=== PATIENT | female | born 1990 | race Caucasian/White ===

== ENCOUNTER 2021-06-14 10:23 | Emergency (ER) | payer OTHER, SELFPAY ==
--- NOTE | 2021-06-14 10:30 | ED.URI ---
HPI - URI/Sore Throat General Chief Complaint: Upper Respiratory Infection Stated Complaint: cough/congestion Time Seen by Provider: 06/14/21 10:41 Source: patient and RN notes reviewed Mode of arrival: ambulatory Limitations: no limitations History of Present Illness HPI Narrative: 31-year-old female presents with concern for continued cough. Reports this is day 9 of symptoms. She has had several negative COVID tests. Reports she was seen by telehealth 4 days ago and was given an antibiotic steroid and an inhaler. She reports symptoms have not improved since she has been taking this medication she is on approximately day 3 of treatment. She reports her cough is persistent and she is unable to return to work with her current cough. MD elicited complaint: cough Related Data Home Medications Medication Instructions Recorded Confirmed albuterol sulfate 2 puff INHALATION PRN PRN 06/14/21 06/14/21 amoxicillin-pot clavulanate 1 tablet PO DAILY 06/14/21 06/14/21 benzonatate 200 mg PO DAILY 06/14/21 06/14/21 bupropion HCl 200 mg PO DAILY 06/14/21 06/14/21 clonazepam 0.5 mg PO DAILY 06/14/21 06/14/21 dextroamphetamine-amphetamine 10 mg PO DAILY 06/14/21 06/14/21 prednisone 10 mg PO DAILY 06/14/21 06/14/21 Allergies Allergy/AdvReac Type Severity Reaction Status Date / Time Sulfa (Sulfonamide Allergy Mild Unknown Verified 06/14/21 10:43 Antibiotics) Review of Systems Review of Systems: CONSTITUTIONAL: Reports malaise ENT: Reports rhinorrhea, congestion. Sinus pain, otalgia and sore throat. RESPIRATORY: Reports cough. Denies dyspnea. All systems reviewed & are unremarkable except as noted in HPI and below PMFSH Comments At time of signature, agree with nursing past medical, surgical, social and family history. There is no relevant family history pertinent to the presenting complaint Exam Narrative: GENERAL: Well-appearing, well-nourished, and in no acute distress. HEAD: Normocephalic EYES: PERRLA, conjunctivae clear ENT: Nares clear. Mucous membranes moist. NECK: Supple. CHEST: Left lower lobe rhonchi, otherwise clear to auscultation, breath sounds equal. Aeration good. No wheezing, rales, or stridor. No respiratory distress, speaks in full sentences. HEART: Regular rate and rhythm. No murmur heard. SKIN: Warm, dry, no rash. NEURO: Alert and oriented x3. PSYCH: Normal mood and affect Course Course Emergency Course: Explained to patient that x-ray is down hospitalwide, patient was hoping for an x-ray. Discussed that she is currently on appropriate treatment for her symptoms and should continue to take the medications and follow-up with her primary care provider at the end of her treatment. Patient is aware of, understands and agrees to treatment plan. Anticipatory guidance given. Patient agrees to follow-up as directed and is aware of reasons to seek care at the emergency department. Portions of this record may have been created with voice recognition software Level of Care: Express Care Visit Vital Signs Vital signs: Vital Signs Temperature 98.9 F 06/14/21 10:33 Pulse Rate 116 H 06/14/21 10:33 Respiratory Rate 16 06/14/21 10:33 Blood Pressure 156/103 H 06/14/21 10:33 Pulse Oximetry 100 06/14/21 10:33 Temperature 98.9 F 06/14/21 10:33 Pulse Rate 116 H 06/14/21 10:33 Respiratory Rate 16 06/14/21 10:33 Blood Pressure 156/103 H 06/14/21 10:33 Pulse Oximetry 100 06/14/21 10:33 Reviewed. Patient has been instructed to follow up with her primary care provider within the next week regarding her elevated blood pressure today. MDM - URI/Sore Throat MDM Narrative Medical decision making narrative: Differential diagnosis considered: Jackman virus, strep pharyngitis, allergic rhinitis, upper respiratory tract infection, sinusitis, rhinosinusitis, nasopharyngitis. viral pharyngitis, otitis media, otitis externa, pneumonia, bronchitis, viral cough syndrome, viral syndrome, and influenza. E
[2021-06-14 10:33] VITALS: BP 156/103; PULSE 116; RESP 16; TEMP 37.2; O2SAT 100
== END 2021-06-14 10:55 | disposition home or self-care (01) ==
PROVIDERS: Emergency Provider Nurse Practitioner
DX: R09.89 Other specified symptoms and signs involving the circulatory and respiratory systems (principal); F90.9 Attention-deficit hyperactivity disorder, unspecified type
CPT/HCPCS: 99213; G0463

== ENCOUNTER 2022-06-25 19:39 | Emergency (ER) | payer OTHER, SELFPAY ==
--- NOTE | ~2022-06-25 | US_ITS ---
EXAMINATION: US OB <= 14 weeks fetus DATE: 06/25/2022 21:49 INDICATION: Vaginal bleeding. TECHNIQUE: Real-time transabdominal obstetric ultrasound. FINDINGS: No prior studies for comparison. The uterus measures 13.1 x 5.3 x 6.5 cm.. Gestational sac and pole are identified in the lower uterine segment near the cervix. [place]-rump length measures 5.09 cm corresponding to 11 weeks 6 day g estation. heart rate is 147 BPM. The ovaries are unremarkable. No free fluid in the pelvis. IMPRESSION: 1. Gestational sac and pole contained in the lower uterine segment near the endocervical juncti on. heart rate 147 BPM. [place]-rump length corresponds to a 11 week 6 day gestation. Recommend f ollow-up ultrasound as clinically warranted. Reviewed, dictated and finalized at location A. [employer] IMPRESSION: 1. Gestational sac and pole contained in the lower uterine segment near t he endocervical junction. heart rate 147 BPM. [place]-rump length correspon ds to a 11 week 6 day gestation. Recommend follow-up ultrasound as clinically w arranted.
[2022-06-25 19:41] VITALS: BP 166/102; PULSE 118; RESP 19; TEMP 36.4; O2SAT 100
[2022-06-25 19:56] LABS: Basophils Absolute Auto 0.1 K/mm3 (0.0-0.1); Basophils Percent Auto 0.5 % (0.2-1.2); Eosinophils Absolute Auto 0.3 K/mm3 (0-0.3); Eosinophils Percent Auto 2.6 % (0-4.4); Hematocrit 36.8 % (37.0-47.0); Hemoglobin 12.2 g/dL (12.0-15.0); Immature Granulocyte Absolute 0.02 K/mm3 (0.00-0.031); Immature Granulocyte Percent A 0.2 % (0-0.5); Lymphocytes Absolute Auto 3.31 K/mm3 (0.9-3.2); Lymphocytes Percent Auto 33.1 % (18.3-44.2); Mean Corpuscular HGB Conc 33.2 g/dl (32-36); Mean Corpuscular Hemoglobin 31.2 pg (26-34); Mean Corpuscular Volume 94.1 fl (80-100); Monocytes Absolute Auto 0.7 K/mm3 (0.1-0.6); Monocytes Percent Auto 7.4 % (2.6-8.5); Neutrophils Absolute Auto 5.6 K/mm3 (1.3-6.7); Neutrophils Percent Auto 56.2 % (45.5-73.1); Platelet Count Result 341 k/mm3 (150-375); Red Blood Count 3.91 M/mm3 (4.2-5.4); Red Cell Distribution Width 12.9 % (11.5-14.5)
[2022-06-25 22:29] VITALS: O2SAT 100
[2022-06-25 22:30] VITALS: O2SAT 100
[2022-06-25 22:31] VITALS: BP 145/88; O2SAT 100
--- NOTE | 2022-06-25 23:01 | ED.FEMALEGU ---
HPI - Female Genitourinary General Chief complaint: Vaginal Bleeding Stated complaint: vaginal bleeding Time Seen by Provider: 06/25/22 20:50 Source: patient Mode of arrival: ambulatory Limitations: no limitations History of Present Illness HPI Narrative: 32-year-old 1 para 0 about 11 weeks of gestation here with complaints of vaginal bleeding for past 2 days. 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 She states she passed some clots. She denied being lightheaded or dizzy. Has occasional abdominal cramping. MD elicited complaint: vaginal bleeding Pertinent past history: other (Medical ) Onset (ago): day(s) (2) Severity: mild Quality of pain: cramping Vaginal bleeding: moderate Exacerbating factors: none Related Data Home Medications Medication Instructions Recorded Confirmed albuterol sulfate 90 mcg/actuation 2 puff inhalation PRN PRN 06/14/21 06/14/21 aerosol inhaler difficulty breathing amoxicillin 875 mg-potassium 1 tablet PO DAILY 06/14/21 06/14/21 clavulanate 125 mg tablet benzonatate 200 mg capsule 200 mg PO DAILY 06/14/21 06/14/21 bupropion HCl 200 mg tablet,12 hr 200 mg PO DAILY 06/14/21 06/14/21 sustained-release clonazepam 0.5 mg tablet 0.5 mg PO DAILY 06/14/21 06/14/21 dextroamphetamine-amphetamine 10 10 mg PO DAILY 06/14/21 06/14/21 mg tablet prednisone 10 mg tablet 10 mg PO DAILY 06/14/21 06/14/21 Allergies Allergy/AdvReac Type Severity Reaction Status Date / Time Sulfa (Sulfonamide Allergy Mild Unknown Verified 06/14/21 10:43 Antibiotics) Review of Systems Review of Systems: All systems reviewed & are unremarkable except as noted in HPI and below Eyes: Eyes: Reports no additional eye complaints ENT: Reports system reviewed and no additional complaints, except as documented Cardiovascular: Cardiovascular: Reports no additional cardiovascular complaints Respiratory: Respiratory: Reports no additional respiratory complaints Gastrointestinal: Gastrointestinal: Reports as per HPI Genitourinary: Genitourinary: Reports as per HPI Musculoskeletal: Musculoskeletal: Reports no additional musculoskeletal complaints Integumentary/Breasts: Skin/Breast: Reports system reviewed and no additional complaints, except as docu Exam Narrative: GENERAL: Well-appearing, well-nourished, and in no acute distress. HEAD: Normocephalic, atraumatic. EYES: PERRLA and EOMI. NECK: Supple. CHEST: Clear to auscultation. No respiratory distress. HEART: Regular rate and rhythm. No murmur heard. Normal peripheral pulses. ABDOMEN: Soft, nontender, nondistended, normal active bowel sounds. EXTREMITIES: Normal range of motion. No edema. SKIN: Warm, dry, no rash. NEURO: No focal deficits. Alert and oriented x3. PSYCH: Normal mood and affect. Course Course Emergency Course: Patient is hemodynamically, hemoglobin is 12.2 her ultrasound shows 11 weeks gestation with positive heart tones. Advised bleeding precautions, contact [facility] tomorrow. Vital Signs Vital signs: Vital Signs Temperature 36.4 C L 06/25/22 19:41 Pulse Rate 118 H 06/25/22 19:41 Respiratory Rate 19 06/25/22 19:41 Blood Pressure 166/102 H 06/25/22 19:41 Pulse Oximetry 100 06/25/22 19:41 Temperature 36.4 C L 06/25/22 19:41 Pulse Rate 118 H 06/25/22 19:41 Respiratory Rate 19 06/25/22 19:41 Blood Pressure 166/102 H 06/25/22 19:41 Pulse Oximetry 100 06/25/22 19:41 MDM - Female Genitourinary Differential Diagnosis Differential diagnosis: Likely other (Threatened miscarriage) Lab Data 06/25/22 19:50 Labs: Lab Results 06/25/22 06/25/22 Range/Units 19:50 19:50 WBC 10.0 (4.5-10.0) K/mm3 RBC 3.91 L (4.2-5.4) M/mm3 Hgb 12.2 (12.0-15.0)
== END 2022-06-25 23:09 | disposition home or self-care (01) ==
PROVIDERS: Emergency Provider Family Medicine
DX: O20.0 Threatened abortion (principal); Z3A.11 11 weeks gestation of pregnancy
CPT/HCPCS: 36415; 76801; 84702; 85025; 99284